=== PATIENT | female | born 1985 | race Two or more races ===

== ENCOUNTER 2019-07-28 00:38 | Inpatient (IN) ==
[2019-07-28] MEDS ORDERED: OXYTOCIN 30 UNITS/500 ML BAG IV PRN ×3 (01:33→21:06)
[2019-07-28 02:04] LABS: Hematocrit (blood only) 37.8 % (37-47); Hemoglobin 12.9 g/dL (12.0-16.0); Mean Corpuscular Hemoglobin 31.6 pg (25-34); Mean Corpuscular Volume 92.6 fL (80-100); Mean Platelet Volume 11.2 fL (7.4-10.4); Platelet Count 189 K/uL (130-400); RDW Coefficient of Variation 13.3 % (11.5-14.5); Red Blood Count 4.08 M/uL (4.2-5.4); White Blood Count 11.31 K/uL (4.8-10.8)
[2019-07-28 02:06] LABS: Mean Corpuscular Hgb Conc 34.1 g/dL (32-36)
[2019-07-28] MEDS: BUTORPHANOL TARTRATE 1 MG/ML VIAL IV PRN ×2 (04:14→06:46)
[2019-07-28] MEDS: LACTATED RINGER'S 1,000 ML IV PRN ×4 (04:21→14:08)
[2019-07-28] MEDS ORDERED: ePHEDrine sulfate 50 MG/ML AMP ONE (08:16)
[2019-07-28] MEDS ORDERED: BUPIVACAINE 0.25% 30 ML VIAL ONE (08:16)
[2019-07-28] MEDS ORDERED: fentaNYL citrate 100 MCG/2 ML VIAL ONE (08:17)
[2019-07-28] MEDS ORDERED: fentaNYL 2MCG/ML ROPIV 1.25MG/ML 100 ML BAG EPI ONE (08:17)
[2019-07-28] MEDS ORDERED: DiphenhydrAMINE HCL 50 MG/ML VIAL IV PRN (09:09)
[2019-07-28] MEDS ORDERED: NALOXONE HCL 0.4 MG/1 ML VIAL/CARP IV PRN (09:09)
[2019-07-28] MEDS ORDERED: NALBUPHINE HCL INJ 10 MG/ML AMP IV PRN (09:09)
[2019-07-28] MEDS ORDERED: ePHEDrine sulfate 50 MG/ML AMP IV PRN (09:09)
[2019-07-28] MEDS ORDERED: NALOXONE HCL 1 MG in SODIUM CHLORIDE 0.9% 1000ML 1,000 ML IV PRN (09:09)
[2019-07-28] MEDS ORDERED: ONDANSETRON INJ 2 MG/ML 2 ML VIAL IV PRN (09:09)
--- NOTE | 2019-07-28 09:14 | Anesthesiology Consultation ---
Date of Service July 28, 2019 Assessment & Plan Chart Review Chart Review: Patient NOT seen in Pre Admission Testing and Acceptable Risk for Labor Epidural Consults Requested none ASA ASA2 Proposed Anesthesia Anesthesia Type: Labor Epidural and CSE Risk / Benefits Reviewed With: PT / POA / Parent / Guardian, Accepts Plan and Informed Consent Obtained History Height/Weight Height: 4 ft 11 in Weight: 57.153 kg Allergies Allergy/AdvReac Type Severity Reaction Status Date / Time No Known Allergies Allergy Verified 07/28/19 01:04 Medications Home Medications Medication Instructions Recorded Confirmed Last Taken cholecalciferol (vitamin D3) 25 mcg PO DAILY 07/28/19 07/28/19 07/27/19 [Vitamin D3] vit-iron fum-folic ac 1 tab PO DAILY 07/28/19 07/28/19 07/27/19 [ Vitamin] vitamin E 400 unit PO DAILY 07/28/19 07/28/19 07/27/19 Active Medications Generic Name Dose Route Start Last Admin Trade Name Freq PRN Reason Stop Dose Admin Butorphanol Tartrate 1 mg 07/28/19 04:01 07/28/19 06:46 Stadol IV 08/27/19 04:00 1 mg Q2HWA PRN Administration Pain Lactated Ringer's 1,000 mls @ 125 mls/hr 07/28/19 01:33 07/28/19 09:06 Lr IV 07/30/19 01:32 999 mls/hr .Q8H PRN Administration L&D Protocol Protocol NPO Date Last Intake of Fluids: 07/28/19 Time Last Intake of Fluids: 08:30 Date Last Intake of Solids: 07/27/19 Time Last Intake of Solids: 22:00 Past Medical History Medical History No known health problems Exercise / Class Metabolic Activity II 4-5 Yardwork/Stairs/Walk up hill Past Anesthesia History No Hx of Anesthesia Complications and No Family Hx of Anesthesia Complications History of PONV No Hx of PONV and No Hx of Motion Sickness Social History Smoking Status: Never smoker Hx Alcohol Use: No Hx Substance Use: No substance use type: does not use Review of Systems no chest pain or sob Physical Exam Vital Signs Last Vital Signs Temp 36.4 C L 07/28/19 08:00 Pulse 91 H 07/28/19 09:11 Resp 18 05/11/20 08:00 BP 101/55 L 07/28/19 08:01 Pulse Ox 91 07/28/19 09:11 ENMT Mouth: no TMJ abnormality Thyromental Distance: > or= 3.5 Finger Breadths Mallampati Class: II Neck normal visual inspection Respiratory normal respiratory effort Auscultation: lungs clear to auscultation bilaterally Cardiovascular Rate/Rhythm: regular rate and regular rhythm Musculoskeletal Spine: normal cervical ROM Neurologic moves all extremities Psychiatric Orientation: alert and oriented x 3 Testing Laboratory Results 07/28/19 01:45
[2019-07-28] MEDS: fentaNYL 2MCG/ML ROPIV 1.25MG/ML 100 ML BAG EPI PRN ×2 (09:35→16:37)
--- NOTE | 2019-07-28 15:04 | Obstetrical Progress Note ---
Date of Service July 28, 2019 Assessment & Plan Admission and Anticipated Discharge Date Admission Date: July 28, 2019 Physical Exam Genitourinary: Manual OB Exam: + cervical dilation 4 cm, + cervical effacement 90%, + station -2 and + amniotic fluid clear OB Exam Monitor Tracing: + external FHT monitor used, + external uterine monitor used, + category I and + normal FHT variability Results & Data ([facility] [place]) Vital Signs (Past 12 Hours) Vital Signs Temp Pulse Resp BP Pulse Ox 07/28/19 15:02 81 113/66 100 07/28/19 14:57 90 98 07/28/19 14:52 74 98 07/28/19 14:49 81 116/65 07/28/19 14:47 89 97 07/28/19 14:43 18 07/28/19 14:42 79 97 07/28/19 14:40 18 07/28/19 14:37 79 98 07/28/19 14:33 82 115/63 07/28/19 14:32 88 100 07/28/19 14:27 79 97 07/28/19 14:23 78 94 07/28/19 14:22 77 98 07/28/19 14:17 86 106/58 L 96 07/28/19 14:13 81 92 07/28/19 14:12 77 99 07/28/19 14:07 97 H 100 07/28/19 14:05 83 92 07/28/19 14:02 83 109/55 L 100 07/28/19 13:57 87 97 07/28/19 13:52 76 99 07/28/19 13:50 85 91 07/28/19 13:49 83 122/57 L 07/28/19 13:47 105 H 98 07/28/19 13:45 84 92 07/28/19 13:42 77 100 07/28/19 13:37 75 99 07/28/19 13:32 86 18 111/70 100 07/28/19 13:27 88 100 07/28/19 13:22 80 100 07/28/19 13:19 106 H 91 07/28/19 13:18 79 116/67 07/28/19 13:17 86 97 07/28/19 13:15 18 07/28/19 13:12 77 100 07/28/19 13:10 18 07/28/19 13:09 82 93 05/11/20 13:07 92 H 99 07/28/19 13:04 83 116/70 07/28/19 13:02 103 H 100 07/28/19 13:00 83 90 07/28/19 12:57 94 H 100 07/28/19 12:53 78 90 07/28/19 12:52 81 99 07/28/19 12:47 83 112/66 99 07/28/19 12:45 99 H 90 07/28/19 12:42 85 100 07/28/19 12:40 18 07/28/19 12:37 92 H 100 07/28/19 12:34 82 116/69 07/28/19 12:32 86 100 07/28/19 12:27 70 100 07/28/19 12:22 87 100 07/28/19 12:18 70 119/70 07/28/19 12:17 72 97 07/28/19 12:15 96 H 92 07/28/19 12:12 81 99 07/28/19 12:10 18 07/28/19 12:07 78 100 07/28/19 12:02 72 105/59 L 100 07/28/19 11:57 72 100 07/28/19 11:52 90 99 07/28/19 11:47 92 H 100/62 98 07/28/19 11:42 75 100 07/28/19 11:40 18 07/28/19 11:37 85 100 07/28/19 11:32 68 102/53 L 100 07/28/19 11:31 76 91 07/28/19 11:27 72 100 07/28/19 11:22 68 98 07/28/19 11:18 74 94/54 L 07/28/19 11:17 83 99 07/28/19 11:12 74 100 07/28/19 11:11 72 86 L 07/28/19 11:10 18 07/28/19 11:07 79 99 07/28/19 11:05 97 H 90 07/28/19 11:02 69 97/54 L 100 07/28/19 10:57 80 97 07/28/19 10:52 79 97 07/28/19 10:47 73 97/55 L 100 07/28/19 10:42 82 99 07/28/19 10:37 73 100 07/28/19 10:35 72 92 07/28/19 10:32 77 96/53 L 100 07/28/19 10:27 76 100 07/28/19 10:22 77 100 07/28/19 10:17 73 100/54 L 100 07/28/19 10:12 86 100 07/28/19 10:07 82 98 07/28/19 10:03 82 97/53 L 07/28/19 10:02 81 100 07/28/19 09:57 101 H 100 07/28/19 09:54 69 110/59 L 07/28/19 09:52 83 99 07/28/19 09:47 109 H 93 07/28/19 09:45 85 112/53 L 07/28/19 09:42 70 105/56 L 100 07/28/19 09:39 67 109/53 L 07/28/19 09:37 60 100 07/28/19 09:36 86 90/53 L 07/28/19 09:33 75 90/51 L 07/28/19 09:32 77 98 07/28/19 09:30 82 91/53 L 07/28/19 09:27 86 122/69 95 07/28/19 09:25 88 89 L 07/28/19 09:22 97 H 99 07/28/19 09:19 86 92 07/28/19 09:17 101 H 97 07/28/19 09:11 91 H 91 07/28/19 09:10 84 96 07/28/19 09:05 84 85 L 07/28/19 09:04 86 91 07/28/19 08:57 100 H 92 07/28/19 08:02 73 93 07/28/19 08:01 71 101/55 L 96 07/28/19 08:00 36.4 C L 18 07/28/19 07:56 75 95 07/28/19 07:51 85 96 07/28/19 07:48 78 93 07/28/19 07:46 82 98 07/28/19 07:41 74 94 07/28/19 07:36 86 95 07/28/19 07:31 92 H 96 07/28/19 07:26 86 88 L 07/28/19 07:24 84 94 07/28/19 07:21 98 H 95 07/28/19 07:18 76 93 07/28/19 07:16 86 96 07/28/19 07:12 80 93 07/28/19 07:11 90 97 07/28/19 07:07 79 94 07/28/19 07:06 80 94 07/28/19 07:02 79 94 07/28/19 07:01 72 95 07/28/19 06:56 81 92 07/28/19 06:53 84 93 07/28/19 06:51 80 95 07/28/19 06:47 90 94 07/28/19 06:46 86 95 07/28/19 06:41 101 H 97 07/28/19 06:38 100 H 94 07/28/19 06:36 93 H 98 07/28/19 06:33 76 94 07/28/19 06:31 89 96 07/28/19 06:26 82 96 07/28/19 06:25 81 94 07/28/19 06:21 89 95 07/28/19 06:16 83 96 07/28/19 06:11 69 96 07/28/19 06:06 86 96 07/28/19 06:01 64 94 07/28/19 05:56 98 H 95 07/28/19 05:54 68 94 07/28/19 05:51 92 H 91 07/28/19 05:46 98 H 95 07/28/19 05:36 65 96 07/28/19 05:31 98 H 95 07/28/19 05:26 74 96 07/28/19 05:21 77 96 07/28/19 05:16 69 96 07/28/19 05:11 93 H 96 07/28/19 05:06 74 96 07/28/19 05:01 70 97 07/28/19 04:56 73 96 07/28/19 04:51 92 H 97 07/28/19 04:46 90 98 07/28/19 04:41 76 97 07/28/19 04:36 67 96 07/28/19 04:32 71 94 07/28/19 04:31 66 95 07/28/19 04:27 74 94 07/28/19 04:26 64 95 07/28/19 04:21 80 95 07/28/19 04:18 77 93 07/28/19 04:16 79 98 07/28/19 03:54 36.5 C 18 07/28/19 03:53 77 111/57 L
--- NOTE | 2019-07-28 17:39 | Obstetrical Progress Note ---
Date of Service July 28, 2019 Assessment & Plan Admission and Anticipated Discharge Date Admission Date: July 28, 2019 Physical Exam Genitourinary: Manual OB Exam: + cervical dilation 7 cm, + cervical effacement 100%, + station 0 and + amniotic fluid clear OB Exam Monitor Tracing: + external FHT monitor used, + external uterine monitor used, + category I and + normal FHT variability Results & Data ([facility]) Vital Signs (Past 12 Hours) Vital Signs Temp Pulse Resp BP Pulse Ox 07/28/19 17:36 85 91 07/28/19 17:34 99 H 103/55 L 07/28/19 17:32 84 95 07/28/19 17:30 93 H 85 L 07/28/19 17:27 74 100 07/28/19 17:22 80 100 07/28/19 17:18 85 99/57 L 07/28/19 17:17 85 100 07/28/19 17:12 79 99 07/28/19 17:07 83 95 07/28/19 17:03 82 104/65 07/28/19 17:02 79 99 07/28/19 16:57 78 99 07/28/19 16:52 76 99 07/28/19 16:49 76 110/65 07/28/19 16:47 79 99 07/28/19 16:42 84 98 07/28/19 16:37 82 99 07/28/19 16:33 75 112/67 07/28/19 16:32 75 100 07/28/19 16:30 87 91 07/28/19 16:28 18 07/28/19 16:27 69 99 07/28/19 16:24 86 90 07/28/19 16:22 93 H 97 07/28/19 16:18 74 18 95/55 L 07/28/19 16:17 94 H 100 07/28/19 16:12 75 100 07/28/19 16:07 74 100 07/28/19 16:04 93 H 89 L 07/28/19 16:02 75 102/52 L 100 07/28/19 15:57 71 100 07/28/19 15:52 81 98 07/28/19 15:48 83 98/55 L 07/28/19 15:47 69 99 07/28/19 15:42 78 96 07/28/19 15:37 74 98 07/28/19 15:32 73 106/55 L 100 07/28/19 15:30 18 07/28/19 15:27 77 99 07/28/19 15:22 76 100 07/28/19 15:17 77 105/57 L 100 07/28/19 15:12 78 100 07/28/19 15:07 79 97 07/28/19 15:06 36.5 C 18 07/28/19 15:02 81 113/66 100 07/28/19 14:57 90 98 07/28/19 14:52 74 98 07/28/19 14:49 81 116/65 07/28/19 14:47 89 97 07/28/19 14:43 18 07/28/19 14:42 79 97 07/28/19 14:40 18 07/28/19 14:37 79 98 07/28/19 14:33 82 115/63 07/28/19 14:32 88 100 07/28/19 14:27 79 97 07/28/19 14:23 78 94 07/28/19 14:22 77 98 07/28/19 14:17 86 106/58 L 96 07/28/19 14:13 81 92 07/28/19 14:12 77 99 07/28/19 14:07 97 H 100 07/28/19 14:05 83 92 07/28/19 14:02 83 109/55 L 100 07/28/19 13:57 87 97 07/28/19 13:52 76 99 07/28/19 13:50 85 91 07/28/19 13:49 83 122/57 L 07/28/19 13:47 105 H 98 07/28/19 13:45 84 92 07/28/19 13:42 77 100 07/28/19 13:37 75 99 07/28/19 13:32 86 18 111/70 100 07/28/19 13:27 88 100 07/28/19 13:22 80 100 07/28/19 13:19 106 H 91 07/28/19 13:18 79 116/67 07/28/19 13:17 86 97 07/28/19 13:15 18 07/28/19 13:12 77 100 07/28/19 13:10 18 07/28/19 13:09 82 93 07/28/19 13:07 92 H 99 05/11/20 13:04 83 116/70 07/28/19 13:02 103 H 100 07/28/19 13:00 83 90 07/28/19 12:57 94 H 100 07/28/19 12:53 78 90 07/28/19 12:52 81 99 07/28/19 12:47 83 112/66 99 07/28/19 12:45 99 H 90 07/28/19 12:42 85 100 07/28/19 12:40 18 07/28/19 12:37 92 H 100 07/28/19 12:34 82 116/69 07/28/19 12:32 86 100 07/28/19 12:27 70 100 07/28/19 12:22 87 100 07/28/19 12:18 70 119/70 07/28/19 12:17 72 97 07/28/19 12:15 96 H 92 07/28/19 12:12 81 99 07/28/19 12:10 18 07/28/19 12:07 78 100 07/28/19 12:02 72 105/59 L 100 07/28/19 11:57 72 100 07/28/19 11:52 90 99 07/28/19 11:47 92 H 100/62 98 07/28/19 11:42 75 100 07/28/19 11:40 18 07/28/19 11:37 85 100 07/28/19 11:32 68 102/53 L 100 07/28/19 11:31 76 91 07/28/19 11:27 72 100 07/28/19 11:22 68 98 07/28/19 11:18 74 94/54 L 07/28/19 11:17 83 99 07/28/19 11:12 74 100 07/28/19 11:11 72 86 L 07/28/19 11:10 18 07/28/19 11:07 79 99 07/28/19 11:05 97 H 90 07/28/19 11:02 69 97/54 L 100 07/28/19 10:57 80 97 07/28/19 10:52 79 97 07/28/19 10:47 73 97/55 L 100 07/28/19 10:42 82 99 07/28/19 10:37 73 100 07/28/19 10:35 72 92 07/28/19 10:32 77 96/53 L 100 07/28/19 10:27 76 100 07/28/19 10:22 77 100 07/28/19 10:17 73 100/54 L 100 07/28/19 10:12 86 100 07/28/19 10:07 82 98 07/28/19 10:03 82 97/53 L 07/28/19 10:02 81 100 07/28/19 09:57 101 H 100 07/28/19 09:54 69 110/59 L 07/28/19 09:52 83 99 07/28/19 09:47 109 H 93 07/28/19 09:45 85 112/53 L 07/28/19 09:42 70 105/56 L 100 07/28/19 09:39 67 109/53 L 07/28/19 09:37 60 100 07/28/19 09:36 86 90/53 L 07/28/19 09:33 75 90/51 L 07/28/19 09:32 77 98 07/28/19 09:30 82 91/53 L 07/28/19 09:27 86 122/69 95 07/28/19 09:25 88 89 L 07/28/19 09:22 97 H 99 07/28/19 09:19 86 92 07/28/19 09:17 101 H 97 07/28/19 09:11 91 H 91 07/28/19 09:10 84 96 07/28/19 09:05 84 85 L 07/28/19 09:04 86 91 07/28/19 08:57 100 H 92 07/28/19 08:02 73 93 07/28/19 08:01 71 101/55 L 96 07/28/19 08:00 36.4 C L 18 07/28/19 07:56 75 95 07/28/19 07:51 85 96 07/28/19 07:48 78 93 07/28/19 07:46 82 98 07/28/19 07:41 74 94 07/28/19 07:36 86 95 07/28/19 07:31 92 H 96 07/28/19 07:26 86 88 L 07/28/19 07:24 84 94 07/28/19 07:21 98 H 95 07/28/19 07:18 76 93 07/28/19 07:16 86 96 05/11/20 07:12 80 93 07/28/19 07:11 90 97 07/28/19 07:07 79 94 07/28/19 07:06 80 94 07/28/19 07:02 79 94 07/28/19 07:01 72 95 07/28/19 06:56 81 92 07/28/19 06:53 84 93 07/28/19 06:51 80 95 07/28/19 06:47 90 94 07/28/19 06:46 86 95 07/28/19 06:41 101 H 97 07/28/19 06:38 100 H 94 07/28/19 06:36 93 H 98 07/28/19 06:33 76 94 07/28/19 06:31 89 96 07/28/19 06:26 82 96 07/28/19 06:25 81 94 07/28/19 06:21 89 95 07/28/19 06:16 83 96 07/28/19 06:11 69 96 07/28/19 06:06 86 96 07/28/19 06:01 64 94 07/28/19 05:56 98 H 95 07/28/19 05:54 68 94 07/28/19 05:51 92 H 91 07/28/19 05:46 98 H 95
--- NOTE | 2019-07-28 20:52 | Delivery Summary ---
Vaginal Delivery Summary Date of Service July 28, 2019 Vaginal Delivery Summary Delivery Note live male BRANDON over intact perineum with delayed cord clamping and Apgars 8/10 weight pending. Cord blood obtained followed by spontaneous delivery of intact perineum. First degree tear repaired with 3/0 Vicryl suture. EBL 200 ml. Final sponge, needle and instrument count are correct. Mom and baby stable.
[2019-07-28] MEDS ORDERED: DIPHTHERIA/TETANUS/PERTUSSIS 0.5 ML SYR/VIAL IM ONE (21:06)
[2019-07-28] MEDS ORDERED: SUPERCREAM 0.870% 15 GM JAR EXT PRN (21:06)
[2019-07-28] MEDS ORDERED: ACETAMINOPHEN 325 MG TAB PO PRN (21:06)
[2019-07-28] MEDS ORDERED: bisacodyL 10 MG SUPP PR PRN (21:06)
[2019-07-28] MEDS ORDERED: HYDROCORTISONE ACETATE 25 MG SUPP PR PRN (21:06)
--- NOTE | 2019-07-28 21:06 | Anesthesia Procedure Note ---
Date of Service July 28, 2019 Anesthesia Post Epidural Note Vital Signs Vital Signs: Temp Pulse Resp BP Pulse Ox 36.9 C 86 18 99/61 L 100 07/28/19 18:41 07/28/19 20:58 07/28/19 20:44 07/28/19 20:58 07/28/19 20:43 Pain Intensity Abdomen: Pain Intensity: 2 Notes Mental Status: alert / awake / arousable and participated in evaluation Nausea / Vomiting: adequately controlled Pain: adequately controlled Airway Patency, RR, SpO2: stable & adequate BP & HR: stable & adequate Hydration State: stable & adequate Neuraxial Anesthesia: was administered and sensory block is resolving Anesthetic Complications: no major complications apparent and Pt Satisfied with anesthetic care Epidural: Removed without complications and With tip intact
[2019-07-28] MEDS: IBUPROFEN 600 MG TAB PO PRN (21:31)
[2019-07-28] MEDS: DOCUSATE SODIUM 100 MG CAP PO SCH (21:31)
[2019-07-29] MEDS: BENZOCAINE 20% AER SPR 82.5 GM CAN EXT PRN
[2019-07-29] MEDS: IBUPROFEN 600 MG TAB PO PRN ×3 (05:52→20:04)
[2019-07-29 06:01] LABS: Hematocrit (blood only) 29.1 % (37-47); Hemoglobin 9.7 g/dL (12.0-16.0); Mean Corpuscular Hemoglobin 30.9 pg (25-34); Mean Corpuscular Hgb Conc 33.3 g/dL (32-36); Mean Corpuscular Volume 92.7 fL (80-100); Mean Platelet Volume 11.2 fL (7.4-10.4); Platelet Count 149 K/uL (130-400); RDW Coefficient of Variation 13.7 % (11.5-14.5); RDW Standard Deviation 45.5 fL (36.4-46.3); Red Blood Count 3.14 M/uL (4.2-5.4); White Blood Count 14.18 K/uL (4.8-10.8)
[2019-07-29] MEDS ORDERED: OXYCODONE/ACETAMINOPHEN 5mg/325mg TAB PO PRN (07:46)
[2019-07-29] MEDS ORDERED: METHYLERGONOVINE MALEATE 0.2 MG TAB PO STA (07:46)
--- NOTE | 2019-07-29 07:50 | Obstetrical Progress Note ---
Date of Service July 29, 2019 Assessment & Plan Admission and Anticipated Discharge Date Admission Date: July 28, 2019 Subjective Patient is seen and examined. She feels well, no complaints. Ambulating without dizziness Voiding without difficulty Tolerating regular diet with out N&V Bleeding is minimal No fever/ chills/ CP/ SOB/ N&V/ Leg pain Breast feeding without problems Vital Signs Temp Pulse Pulse Resp BP BP Pulse Ox 07/29/19 07:15 36.6 C 72 16 97/60 L 98 07/29/19 02:35 36.6 C 88 16 96/59 L 99 07/28/19 23:15 36.8 C 86 18 92/51 L 07/28/19 22:57 86 92/51 L 07/28/19 22:44 36.8 C 18 07/28/19 22:28 96 H 80/58 L 07/28/19 22:13 95 H 18 92/55 L 07/28/19 21:58 86 90/50 L 07/28/19 21:43 80 18 106/57 L 07/28/19 21:28 80 20 111/55 L 07/28/19 21:13 73 20 93/54 L 07/28/19 20:58 86 18 99/61 L 07/28/19 20:44 18 07/28/19 20:43 92 H 106/59 L 100 07/28/19 20:42 98 H 90 07/28/19 20:38 102 H 100 07/28/19 20:34 115 H 92 07/28/19 20:33 114 H 97 07/28/19 20:28 121 H 97 07/28/19 20:23 123 H 100 07/28/19 20:18 108 H 20 107/55 L 100 07/28/19 20:17 96 H 87 L 07/28/19 20:13 114 H 76 L 07/28/19 20:08 105 H 78 L 07/28/19 20:03 98 H 100 07/28/19 20:02 81 20 109/57 L 07/28/19 20:00 90 87 L 07/28/19 19:58 92 H 100 07/28/19 19:53 98 H 100 07/28/19 19:48 98 H 99 07/28/19 19:47 86 90 07/28/19 19:43 103 H 100 07/28/19 19:38 100 H 81 L 07/28/19 19:33 92 H 100 07/28/19 19:32 93 H 103/56 L 07/28/19 19:31 20 07/28/19 19:29 107 H 92 07/28/19 19:28 103 H 99 07/28/19 19:23 123 H 99 07/28/19 19:18 94 H 100 07/28/19 19:13 125 H 100 07/28/19 19:07 95 H 98 07/28/19 19:03 121 H 215/95 H 07/28/19 19:02 88 84 L 07/28/19 19:00 77 91 07/28/19 18:57 83 93 07/28/19 18:55 75 18 90 07/28/19 18:52 80 97 07/28/19 18:47 73 104/56 L 97 07/28/19 18:43 76 93 07/28/19 18:42 74 97 07/28/19 18:41 36.9 C 18 07/28/19 18:37 78 97 07/28/19 18:36 85 92 07/28/19 18:34 75 113/65 07/28/19 18:32 78 99 07/28/19 18:31 99 H 91 07/28/19 18:30 18 07/28/19 18:27 73 100 07/28/19 18:25 73 92 07/28/19 18:22 83 98 07/28/19 18:19 77 105/57 L 07/28/19 18:17 72 82 L 07/28/19 18:14 74 92 07/28/19 18:12 93 H 99 07/28/19 18:07 78 92 07/28/19 18:04 79 130/60 07/28/19 18:02 74 96 07/28/19 17:57 70 96 07/28/19 17:56 72 94 07/28/19 17:52 88 100 07/28/19 17:50 83 86 L 07/28/19 17:49 87 95/58 L 07/28/19 17:47 81 98 07/28/19 17:42 86 90 07/28/19 17:37 81 87 L 07/28/19 17:36 85 18 91 07/28/19 17:34 99 H 103/55 L 07/28/19 17:32 84 95 07/28/19 17:30 93 H 85 L 07/28/19 17:27 74 100 07/28/19 17:22 80 100 07/28/19 17:18 85 99/57 L 07/28/19 17:17 85 100 07/28/19 17:12 79 99 07/28/19 17:07 83 95 07/28/19 17:03 82 104/65 07/28/19 17:02 79 99 07/28/19 16:57 78 99 07/28/19 16:52 76 99 07/28/19 16:49 76 110/65 07/28/19 16:47 79 99 07/28/19 16:42 84 98 07/28/19 16:37 82 99 07/28/19 16:33 75 112/67 07/28/19 16:32 75 100 07/28/19 16:30 87 91 07/28/19 16:28 18 07/28/19 16:27 69 99 07/28/19 16:24 86 90 07/28/19 16:22 93 H 97 07/28/19 16:18 74 18 95/55 L 07/28/19 16:17 94 H 100 07/28/19 16:12 75 100 07/28/19 16:07 74 100 07/28/19 16:04 93 H 89 L 07/28/19 16:02 75 102/52 L 100 07/28/19 15:57 71 100 07/28/19 15:52 81 98 07/28/19 15:48 83 98/55 L 07/28/19 15:47 69 99 07/28/19 15:42 78 96 07/28/19 15:37 74 98 07/28/19 15:32 73 106/55 L 100 07/28/19 15:30 18 07/28/19 15:27 77 99 07/28/19 15:22 76 100 07/28/19 15:17 77 105/57 L 100 07/28/19 15:12 78 100 07/28/19 15:07 79 97 07/28/19 15:06 36.5 C 18 07/28/19 15:02 81 113/66 100 07/28/19 14:57 90 98 07/28/19 14:52 74 98 07/28/19 14:49 81 116/65 07/28/19 14:47 89 97 07/28/19 14:43 18 07/28/19 14:42 79 97 07/28/19 14:40 18 07/28/19 14:37 79 98 07/28/19 14:33 82 115/63 07/28/19 14:32 88 100 07/28/19 14:27 79 97 07/28/19 14:23 78 94 07/28/19 14:22 77 98 07/28/19 14:17 86 106/58 L 96 07/28/19 14:13 81 92 07/28/19 14:12 77 99 07/28/19 14:07 97 H 100 07/28/19 14:05 83 92 07/28/19 14:02 83 109/55 L 100 07/28/19 13:57 87 97 07/28/19 13:52 76 99 07/28/19 13:50 85 91 07/28/19 13:49 83 122/57 L 07/28/19 13:47 105 H 98 07/28/19 13:45 84 92 07/28/19 13:42 77 100 07/28/19 13:37 75 99 07/28/19 13:32 86 18 111/70 100 07/28/19 13:27 88 100 07/28/19 13:22 80 100 07/28/19 13:19 106 H 91 07/28/19 13:18 79 116/67 07/28/19 13:17 86 97 07/28/19 13:15 18 07/28/19 13:12 77 100 07/28/19 13:10 18 07/28/19 13:09 82 93 07/28/19 13:07 92 H 99 07/28/19 13:04 83 116/70 07/28/19 13:02 103 H 100 07/28/19 13:00 83 90 07/28/19 12:57 94 H 100 07/28/19 12:53 78 90 07/28/19 12:52 81 99 07/28/19 12:47 83 112/66 99 07/28/19 12:45 99 H 90 07/28/19 12:42 85 100 07/28/19 12:40 18 07/28/19 12:37 92 H 100 07/28/19 12:34 82 116/69 07/28/19 12:32 86 100 07/28/19 12:27 70 100 07/28/19 12:22 87 100 07/28/19 12:18 70 119/70 07/28/19 12:17 72 97 07/28/19 12:15 96 H 92 07/28/19 12:12 81 99 07/28/19 12:10 18 07/28/19 12:07 78 100 07/28/19 12:02 72 105/59 L 100 07/28/19 11:57 72 100 07/28/19 11:52 90 99 07/28/19 11:47 92 H 100/62 98 07/28/19 11:42 75 100 07/28/19 11:40 18 07/28/19 11:37 85 100 07/28/19 11:32 68 102/53 L 100 07/28/19 11:31 76 91 07/28/19 11:27 72 100 07/28/19 11:22 68 98 07/28/19 11:18 74 94/54 L 07/28/19 11:17 83 99 07/28/19 11:12 74 100 07/28/19 11:11 72 86 L 07/28/19 11:10 18 07/28/19 11:07 79 99 07/28/19 11:05 97 H 90 07/28/19 11:02 69 97/54 L 100 07/28/19 10:57 80 97 07/28/19 10:52 79 97 07/28/19 10:47 73 97/55 L 100 07/28/19 10:42 82 99 07/28/19 10:37 73 100 07/28/19 10:35 72 92 07/28/19 10:32 77 96/53 L 100 07/28/19 10:27 76 100 07/28/19 10:22 77 100 07/28/19 10:17 73 100/54 L 100 07/28/19 10:12 86 100 07/28/19 10:07 82 98 07/28/19 10:03 82 97/53 L 07/28/19 10:02 81 100 07/28/19 09:57 101 H 100 07/28/19 09:54 69 110/59 L 07/28/19 09:52 83 99 07/28/19 09:47 109 H 93 07/28/19 09:45 85 112/53 L 07/28/19 09:42 70 105/56 L 100 07/28/19 09:39 67 109/53 L 07/28/19 09:37 60 100 07/28/19 09:36 86 90/53 L 07/28/19 09:33 75 90/51 L 07/28/19 09:32 77 98 07/28/19 09:30 82 91/53 L 07/28/19 09:27 86 122/69 95 07/28/19 09:25 88 89 L 07/28/19 09:22 97 H 99 07/28/19 09:19 86 92 07/28/19 09:17 101 H 97 07/28/19 09:11 91 H 91 07/28/19 09:10 84 96 07/28/19 09:05 84 85 L 07/28/19 09:04 86 91 07/28/19 08:57 100 H 92 07/28/19 08:02 73 93 07/28/19 08:01 71 101/55 L 96 07/28/19 08:00 36.4 C L 18 07/28/19 07:56 75 95 07/28/19 07:51 85 96 Intake and Output 07/28/19 07/29/19 07/29/19 22:59 06:59 14:59 Intake Total 1348.35 / 3198.917 Output Total 150 / 900 150 / 900 Balance 1198.35 / 2298.917 -150 / 2298.917 Intake: IV 1348.35 / 3198.917 Lr 1,000 ml @ 125 mls/hr IV . 1000.00 / 2848.934 Q8H PRN Rx#:[id number] PITOCIN 30 units In 500 ml @ 59 348.35 / 349.983 .94 UNITS/HR 999 mls/hr IV . Q31M PRN Rx#:[id number] Output: Urine 150 / 300 150 / 300 Other: # Unmeasured Voids 1 Lab Results 07/28/19 07/29/19 Range/Units 01:45 05:25 WBC 11.31 H 14.18 H (4.8-10.8) K/uL RBC 4.08 L 3.14 L (4.2-5.4) M/uL Hgb 12.9 9.7 L D (12.0-16.0) g/dL Hct 37.8 29.1 L (37-47) % MCV 92.6 92.7 (80-100) fL MCH 31.6 30.9 (25-34) pg MCHC 34.1 33.3 (32-36) g/dL RDW Std Deviation 45.0 45.5 (36.4-46.3) fL RDW Coeff of Nevin 13.3 13.7 (11.5-14.5) % Plt Count 189 149 (130-400) K/uL MPV 11.2 H 11.2 H (7.4-10.4) fL PE: General: Alert, orientedx3, NAD Abd: soft, NT, fundus firm, 2+ Umbilicus Perineum intact, Lochia rubra minimal Ext; NT, no edema AP: 34 yo s/p , ppd# 1 VSS Afebrile doing well Will start Methergine PO Ferrous sulfate bid Continue routine care All questions were answered Results & Data ([facility]) Vital Signs (Past 12 Hours) Vital Signs Temp Pulse Pulse Resp BP BP Pulse Ox 07/29/19 07:15 36.6 C 72 16 97/60 L 98 07/29/19 02:35 36.6 C 88 16 96/59 L 99 07/28/19 23:15 36.8 C 86 18 92/51 L 07/28/19 22:57 86 92/51 L 07/28/19 22:44 36.8 C 18 07/28/19 22:28 96 H 80/58 L 07/28/19 22:13 95 H 18 92/55 L 07/28/19 21:58 86 90/50 L 07/28/19 21:43 80 18 106/57 L 07/28/19 21:28 80 20 111/55 L 07/28/19 21:13 73 20 93/54 L 07/28/19 20:58 86 18 99/61 L 07/28/19 20:44 18 07/28/19 20:43 92 H 106/59 L 100 07/28/19 20:42 98 H 90 07/28/19 20:38 102 H 100 07/28/19 20:34 115 H 92 07/28/19 20:33 114 H 97 07/28/19 20:28 121 H 97 07/28/19 20:23 123 H 100 07/28/19 20:18 108 H 20 107/55 L 100 07/28/19 20:17 96 H 87 L 07/28/19 20:13 114 H 76 L 07/28/19 20:08 105 H 78 L 07/28/19 20:03 98 H 100 07/28/19 20:02 81 20 109/57 L 07/28/19 20:00 90 87 L 07/28/19 19:58 92 H 100 07/28/19 19:53 98 H 100
[2019-07-29] MEDS ORDERED: FERROUS SULFATE 325 MG TAB PO SCH (08:00)
[2019-07-29] MEDS: DOCUSATE SODIUM 100 MG CAP PO SCH ×2 (08:13→20:04)
[2019-07-29] MEDS: FERROUS SULFATE 325 MG TAB PO SCH ×2 (08:13→16:27)
[2019-07-29] MEDS: PRENATAL VITAMIN 1 TAB PO SCH (08:13)
[2019-07-29] MEDS: TOCOPHERYL, DL-ALPHA 400 UNITS CAP PO SCH (08:14)
[2019-07-29] MEDS ORDERED: NON-FORMULARY MEDICATION (Prenatal Vit-Iron Fum-Folic Ac [Prenatal Vitamin] 1 TAB) PO SCH (09:00)
[2019-07-29] MEDS ORDERED: CHOLECALCIFEROL 25 MCG PO SCH (09:00)
[2019-07-29] MEDS: METHYLERGONOVINE MALEATE 0.2 MG TAB PO SCH ×3 (11:42→20:04)
[2019-07-29] MEDS ORDERED: bisacodyL 5 MG TABEC PO SCH (20:00)
[2019-07-30] MEDS: IBUPROFEN 600 MG TAB PO PRN ×3 (00:01→08:54)
[2019-07-30] MEDS: BENZOCAINE 20% AER SPR 82.5 GM CAN EXT PRN (00:01)
[2019-07-30] MEDS: METHYLERGONOVINE MALEATE 0.2 MG TAB PO SCH ×2 (00:01→04:05)
[2019-07-30 06:20] LABS: Basophils # (auto) 0.01 K/uL (0-0.2); Basophils % (auto) 0.1 %; Eosinophils # (auto) 0.18 K/uL (0-0.5); Eosinophils % (auto) 1.4 %; Hematocrit (blood only) 34.6 % (37-47); Hemoglobin 11.4 g/dL (12.0-16.0); Immature Granulocytes # (auto) 0.04 K/uL (0.00-0.02); Immature Granulocytes % (auto) 0.3 %; Lymphocytes # (auto) 3.45 K/uL (1.2-3.4); Lymphocytes % (auto) 26.3 %; Mean Corpuscular Hemoglobin 30.9 pg (25-34); Mean Corpuscular Hgb Conc 32.9 g/dL (32-36); Mean Corpuscular Volume 93.8 fL (80-100); Monocytes # (auto) 1.02 K/uL (0.11-0.59); Monocytes % (auto) 7.8 %; Neutrophils # (auto) 8.44 K/uL (1.4-6.5); Neutrophils % (auto) 64.1 %; Platelet Count 161 K/uL (130-400); RDW Coefficient of Variation 13.8 % (11.5-14.5); RDW Standard Deviation 47.2 fL (36.4-46.3); Red Blood Count 3.69 M/uL (4.2-5.4); White Blood Count 13.14 K/uL (4.8-10.8)
[2019-07-30] MEDS: DOCUSATE SODIUM 100 MG CAP PO SCH (08:54)
[2019-07-30] MEDS: PRENATAL VITAMIN 1 TAB PO SCH (08:54)
[2019-07-30] MEDS: FERROUS SULFATE 325 MG TAB PO SCH (08:54)
[2019-07-30] MEDS: TOCOPHERYL, DL-ALPHA 400 UNITS CAP PO SCH (08:54)
--- NOTE | 2019-07-30 09:53 | Obstetrical Progress Note ---
Date of Service July 30, 2019 Subjective Ambulation: ambulating normally Voiding: no voiding problems Passing Gas:: Yes Diet Tolerance:: regular diet Lochia:: Small Feeding Type:: breast feeding Review of Systems All systems reviewed & are unremarkable except as noted in HPI & below Physical Exam Constitutional WD/WN, vitals as above well developed and well nourished Eyes PERRL, conjunctivae normal, anicteric sclerae Neck trachea midline, no thyromegaly Respiratory normal respiratory effort, lungs clear to auscultation Auscultation: no crackles, no rales and no wheezes Cardiovascular RRR, no murmur, no edema Gastrointestinal (Abdomen) normal bowel sounds, soft, nontender, no hepatosplenomegaly Uterus is below umbilicus Musculoskeletal no cyanosis or clubbing, extremities motor strength 5/5 Skin no rashes, warm and dry Neurologic patellar DTR's 2+ bilat, sensation intact Psychiatric A+Ox3, euthymic affect Genitourinary normal external appearance Results & Data Vital Signs (Past 12 Hours) Vital Signs Temp Pulse Resp BP 07/30/19 08:45 36.4 C L 56 L 18 102/71 07/29/19 23:30 36.8 C 67 18 112/73
== END 2019-07-30 14:05 | disposition home or self-care (01) | DRG 807 ==
LOC: OPB 00:38 → 4S1 00:40 → 4S2 07-29 00:14

== ENCOUNTER 2021-11-11 00:16 | Inpatient (IN) ==
[2021-11-11] MEDS ORDERED: OXYTOCIN 30 UNITS/500 ML BAG IV PRN ×3 (01:05→11:52)
[2021-11-11] MEDS ORDERED: LIDOCAINE 1% LOCAL 20 ML VIAL INFIL PRN (01:05)
--- NOTE | 2021-11-11 01:13 | History & Physical Report ---
Date of Service November 11, 2021 Assessment & Plan (1) Amniotic fluid leaking: Plan: 36-year-old -0-0-1 at 39 weeks and 1 day gestation presenting with spontaneous rupture of membrane, contractions and in early labor, Vital signs stable afebrile, Heart rate reassuring, GBS negative, Plan to admit, monitor, labs, expectant management, All questions were answered. (2) Uterine contractions during : History of Present Illness Primary Care Provider: Lisa Patel MD Patient is a 36-year-old -0-0-1 at 39 weeks and 1 day gestation who has been leaking since 1130 last night. It has been constant Trickle of clear fluids. Vaginal bleeding. She also feels contractions not sure how often but they have been painful. She reports good movements. Her has been uncomplicated except, 1. AMA, Q cindy and MSAFP low risk, 2. Iron deficiency anemia, vegetarian, vitamin D deficiency, 3. Itching of palms and soles, bile acid level normal Allergies Allergy/AdvReac Type Severity Reaction Status Date / Time No Known Allergies Allergy Verified 11/11/21 00:48 Home Medications Medication Instructions Recorded Confirmed Type cholecalciferol (vitamin D3) 25 25 mcg PO DAILY 07/28/19 11/11/21 History mcg (1,000 unit) tablet (Vitamin D3) vitamins-iron fumarate 27 1 tab PO DAILY 07/28/19 11/11/21 History mg iron-folic acid 0.8 mg tablet ( Vitamin) vitamin E 268 mg (400 unit) capsule 400 unit PO DAILY 07/28/19 11/11/21 History ferrous sulfate 325 mg (65 mg 325 mg PO DAILY 11/11/21 11/11/21 History iron) tablet (Iron (ferrous sulfate)) Patient History Medical History Anemia Fibrocystic breast changes of both breasts 2016 Social History Smoking Status: Never smoker Hx Alcohol Use: No Hx Substance Use: No Preferred Language: Khmer 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 Beliefs That Will Affect Care: None marital status: Current Living Situation: Spouse Feels Safe at Home: Yes Assistive Devices: None OB History Full-term on 2019 [employer] History No history of STDs, no history of herpes, chlamydia, gonorrhea Review of Systems as per Subjective / HPI Physical Exam Constitutional: WD/WN, vitals as above + acute distress (With contractions only) and + thin Genitourinary: normal external appearance (Grossly leaking) OB Exam Abdomen: + vertex Manual OB Exam: + cervical dilation 3 cm, + cervical effacement 50% and + station -2 OB Exam Monitor Tracing: + external uterine monitor used and + category I Results & Data ([facility]) Vital Signs (Past 12 Hours) Vital Signs Pulse BP 11/11/21 00:38 67 100/61
[2021-11-11] MEDS: LACTATED RINGER'S 1,000 ML IV PRN ×3 (01:32→08:25)
[2021-11-11 01:34] LABS: Hematocrit (blood only) 37.1 % (34.1-44.9); Hemoglobin 12.4 g/dl (12.0-16.0); Mean Corpuscular Hemoglobin 31.2 pg (25.0-34.0); Mean Corpuscular Hgb Conc 33.4 g/dL (32.0-36.0); Mean Corpuscular Volume 93.2 fL (80.0-100.0); Mean Platelet Volume 10.6 fL (9.4-12.3); Platelet Count 158 K/uL (130-400); RDW Coefficient of Variation 13.3 % (11.5-14.5); RDW Standard Deviation 45.3 fL (36.4-46.3); Red Blood Count 3.98 M/uL (3.93-5.22); White Blood Count 9.41 K/ul (4.8-10.8)
[2021-11-11] MEDS ORDERED: ePHEDrine sulfate 50 MG/ML AMP ONE (02:26)
[2021-11-11] MEDS ORDERED: fentaNYL citrate 100 MCG/2 ML VIAL ONE (02:26)
[2021-11-11] MEDS ORDERED: LIDOCAINE 2%/EPINEPHRINE 1:200,000 20 ML SDV ONE (02:27)
[2021-11-11] MEDS ORDERED: BUPIVACAINE 0.25% 30 ML VIAL ONE (02:27)
[2021-11-11] MEDS ORDERED: fentaNYL 2MCG/ML ROPIVACAINE 1.25MG/ML 100 ML BAG EPI ONE (02:27)
[2021-11-11] MEDS ORDERED: SODIUM CHLORIDE 0.9% INJ 10 ML VIAL ONE (02:27)
[2021-11-11] MEDS ORDERED: NALOXONE HCL 1 MG in SODIUM CHLORIDE 0.9% 1000ML 1,000 ML IV PRN (03:04)
[2021-11-11] MEDS ORDERED: diphenhydrAMINE 50 MG/ML VIAL IV PRN (03:04)
[2021-11-11] MEDS ORDERED: NALBUPHINE HCL INJ 10 MG/ML AMP IV PRN (03:04)
[2021-11-11] MEDS ORDERED: NALOXONE HCL 0.4 MG/1 ML VIAL/CARP IV PRN (03:04)
[2021-11-11] MEDS ORDERED: ONDANSETRON INJ 2 MG/ML 2 ML VIAL IV PRN (03:04)
[2021-11-11] MEDS ORDERED: fentaNYL 2MCG/ML ROPIVACAINE 1.25MG/ML 100 ML BAG EPI PRN (03:04)
--- NOTE | 2021-11-11 03:07 | Anesthesiology Consultation ---
Date of Service November 11, 2021 Assessment & Plan Chart Review Chart Review: Patient NOT seen in Pre Admission Testing and Acceptable Risk for Labor Epidural Consults Requested none ASA ASA2 Proposed Anesthesia Anesthesia Type: Labor Epidural and CSE Risk / Benefits Reviewed With: PT / POA / Parent / Guardian, Accepts Plan and Informed Consent Obtained History Height/Weight Height: 4 ft 11 in Weight: 57.606 kg Allergies Allergy/AdvReac Type Severity Reaction Status Date / Time No Known Allergies Allergy Verified 11/11/21 00:48 Medications Home Medications Medication Instructions Recorded Confirmed Last Taken cholecalciferol (vitamin D3) 25 25 mcg PO DAILY 07/28/19 11/11/21 11/10/21 mcg (1,000 unit) tablet (Vitamin D3) vitamins-iron fumarate 27 1 tab PO DAILY 07/28/19 11/11/21 11/10/21 mg iron-folic acid 0.8 mg tablet ( Vitamin) vitamin E 268 mg (400 unit) capsule 400 unit PO DAILY 07/28/19 11/11/21 11/10/21 ferrous sulfate 325 mg (65 mg 325 mg PO DAILY 11/11/21 11/11/21 11/10/21 iron) tablet (Iron (ferrous sulfate)) Active Medications Generic Name Dose Route Start Last Admin Trade Name Freq PRN Reason Stop Dose Admin Lactated Ringer's 1,000 mls @ 150 mls/hr 11/11/21 01:05 11/11/21 01:32 Lr IV 11/13/21 01:04 150 mls/hr .[id number] PRN Administration L&D Protocol Protocol NPO Date Last Intake of Fluids: 11/11/21 Time Last Intake of Fluids: 01:00 Date Last Intake of Solids: 11/10/21 Time Last Intake of Solids: 18:00 Past Medical History Medical History Anemia Fibrocystic breast changes of both breasts 2016 Exercise / Class Metabolic Activity II 4-5 Yardwork/Stairs/Walk up hill Past Anesthesia History No Hx of Anesthesia Complications and No Family Hx of Anesthesia Complications History of PONV No Hx of PONV and No Hx of Motion Sickness Social History Smoking Status: Never smoker Hx Alcohol Use: No Hx Substance Use: No substance use type: does not use Review of Systems no chest pain or sob Physical Exam Vital Signs Last Vital Signs Temp 36.5 C 11/11/21 02:00 Pulse 71 11/11/21 03:01 Resp 18 11/11/21 02:00 BP 118/68 11/11/21 02:40 Pulse Ox 100 11/11/21 03:01 ENMT Mouth: no TMJ abnormality Thyromental Distance: > or= 3.5 Finger Breadths Mallampati Class: II Neck normal visual inspection Respiratory normal respiratory effort Auscultation: lungs clear to auscultation bilaterally Cardiovascular Rate/Rhythm: regular rate and regular rhythm Musculoskeletal Spine: normal cervical ROM Neurologic moves all extremities Psychiatric Orientation: alert and oriented x 3 Testing Laboratory Results 11/11/21 01:20
[2021-11-11] MEDS: ePHEDrine sulfate 50 MG/ML AMP IV PRN ×4 (03:30→08:32)
[2021-11-11] MEDS ORDERED: bisacodyL 10 MG SUPP PR PRN (11:52)
[2021-11-11] MEDS ORDERED: BENZOCAINE 20% AER SPR 82.5 GM CAN EXT PRN (11:52)
[2021-11-11] MEDS ORDERED: DIPHTHERIA/TETANUS/PERTUSSIS 0.5 ML SYR/VIAL IM ONE (11:52)
[2021-11-11] MEDS ORDERED: HYDROCORTISONE ACETATE 25 MG SUPP PR PRN (11:52)
--- NOTE | 2021-11-11 11:53 | Delivery Summary ---
Vaginal Delivery Summary Date of Service November 11, 2021 Vaginal Delivery Summary Delivery Note live female BRANDON with delayed cord clamping and true knot in cord x1. Apgars 8/9 weight pending. Cord blood obtained followed by spontaneous delivery of intact placenta. No tears. EBL 200 ml. Final sponge and instrument count are correct. Mom and baby stable.
--- NOTE | 2021-11-11 12:18 | Anesthesia Procedure Note ---
Date of Service November 11, 2021 Anesthesia Post Epidural Note Vital Signs Vital Signs: Temp Pulse Resp BP Pulse Ox 98.2 F 77 20 114/58 L 86 L 11/11/21 11:42 11/11/21 12:15 11/11/21 11:42 11/11/21 12:15 11/11/21 11:44 Notes Mental Status: alert / awake / arousable and participated in evaluation Nausea / Vomiting: adequately controlled Pain: adequately controlled Airway Patency, RR, SpO2: stable & adequate BP & HR: stable & adequate Hydration State: stable & adequate Neuraxial Anesthesia: was administered and sensory block is resolving Anesthetic Complications: no major complications apparent and Pt Satisfied with anesthetic care Epidural: Removed without complications and With tip intact
[2021-11-11] MEDS: IBUPROFEN 600 MG TAB PO PRN ×2 (14:11→19:04)
[2021-11-11] MEDS: ACETAMINOPHEN 325 MG TAB PO PRN ×2 (17:21→23:35)
[2021-11-11] MEDS: DOCUSATE SODIUM 100 MG CAP PO SCH (21:34)
[2021-11-12] MEDS: IBUPROFEN 600 MG TAB PO PRN ×3 (01:06→19:33)
[2021-11-12] MEDS: ACETAMINOPHEN 325 MG TAB PO PRN (06:26)
[2021-11-12 06:39] LABS: Hematocrit (blood only) 31.5 % (34.1-44.9); Hemoglobin 10.4 g/dl (12.0-16.0); Mean Corpuscular Hemoglobin 30.5 pg (25.0-34.0); Mean Corpuscular Volume 92.4 fL (80.0-100.0); Mean Platelet Volume 10.9 fL (9.4-12.3); Platelet Count 139 K/uL (130-400); RDW Coefficient of Variation 13.4 % (11.5-14.5); RDW Standard Deviation 44.9 fL (36.4-46.3); Red Blood Count 3.41 M/uL (3.93-5.22); White Blood Count 13.57 K/ul (4.8-10.8)
[2021-11-12] MEDS ORDERED: FERROUS SULFATE 325 MG TAB PO SCH (08:00)
[2021-11-12] MEDS ORDERED: NON-FORMULARY MEDICATION (Prenatal Vit-Iron Fum-Folic Ac [Prenatal Vitamin] 27 mg iron- 0. PO SCH (09:00)
--- NOTE | 2021-11-12 09:33 | Obstetrical Progress Note ---
Date of Service November 12, 2021 Assessment & Plan (1) Normal course: PPD #1 Pt reports headache with left ocular pain. No RUQ pain Minimal relief with Tylenol BP is 99/63. Plt nml CMP ordered plan Rx for Tylenol#3 Caffeine. if no improvement will call anesthesia for spina; headache evaluation and tx Subjective Ambulation: ambulating normally Voiding: no voiding problems Passing Gas:: Yes Diet Tolerance:: regular diet Lochia:: Small Feeding Type:: breast feeding Review of Systems All systems reviewed & are unremarkable except as noted in HPI & below Physical Exam Constitutional WD/WN, vitals as above well developed and well nourished Eyes PERRL, conjunctivae normal, anicteric sclerae Neck trachea midline, no thyromegaly Respiratory normal respiratory effort, lungs clear to auscultation Auscultation: no crackles, no rales and no wheezes Cardiovascular RRR, no murmur, no edema Gastrointestinal (Abdomen) normal bowel sounds, soft, nontender, no hepatosplenomegaly Uterus is below umbilicus Musculoskeletal no cyanosis or clubbing, extremities motor strength 5/5 Skin no rashes, warm and dry Neurologic patellar DTR's 2+ bilat, sensation intact Psychiatric A+Ox3, euthymic affect Genitourinary normal external appearance Results & Data ([facility]) Vital Signs (Past 12 Hours) Vital Signs Temp Pulse Resp BP Pulse Ox O2 Del Method 11/12/21 05:02 36.4 C L 64 16 99/63 L 100 Room Air 11/11/21 23:00 36.5 C 70 18 96/60 L 100 Room Air
[2021-11-12] MEDS: DOCUSATE SODIUM 100 MG CAP PO SCH ×2 (10:02→19:39)
[2021-11-12] MEDS: PRENATAL VITAMIN 1 TAB PO SCH (10:02)
[2021-11-12] MEDS: ACETAMINOPHEN W/CODEINE #3 1 TAB PO PRN ×3 (10:02→19:32)
[2021-11-12] MEDS: FERROUS SULFATE 325 MG TAB PO SCH (10:02)
[2021-11-12] MEDS: TOCOPHERYL, DL-ALPHA 400 UNITS 180 MG CAP PO SCH (10:03)
[2021-11-12] MEDS: CHOLECALCIFEROL 1,000 UNITS 25 MCG TAB PO SCH (10:03)
[2021-11-12 10:20] LABS: Albumin Globulin Ratio 1.1 (0.9-2); Albumin Level 2.7 gm/dl (3.4-5.0); BUN Creatinine Ratio 11.1 (10-20); Bilirubin,Total 0.4 mg/dl (0.2-1.0); Calcium 8.3 mg/dl (8.5-10.1); Creatinine Clr Calc Pharmacy 133.6 ml/min; Est GFR (African American) 149.4 ml/min; Est GFR (Non-African American) 128.9 ml/min; Globulin 2.5 gm/dl (2.5-4.0); Potassium 3.8 mmol/L (3.5-5.1); Total Protein 5.2 gm/dl (6.0-8.3)
[2021-11-12] MEDS ORDERED: bisacodyL 5 MG TABEC PO SCH (20:00)
[2021-11-13] MEDS: ACETAMINOPHEN W/CODEINE #3 1 TAB PO PRN ×2 (06:19→10:56)
[2021-11-13] MEDS: IBUPROFEN 600 MG TAB PO PRN ×2 (06:20→10:56)
[2021-11-13 06:31] LABS: Hematocrit (blood only) 33.7 % (34.1-44.9); Hemoglobin 11.2 g/dl (12.0-16.0)
[2021-11-13] MEDS: TOCOPHERYL, DL-ALPHA 400 UNITS 180 MG CAP PO SCH (08:31)
[2021-11-13] MEDS: CHOLECALCIFEROL 1,000 UNITS 25 MCG TAB PO SCH (08:31)
[2021-11-13] MEDS: DOCUSATE SODIUM 100 MG CAP PO SCH (08:32)
[2021-11-13] MEDS: PRENATAL VITAMIN 1 TAB PO SCH (08:32)
[2021-11-13] MEDS: FERROUS SULFATE 325 MG TAB PO SCH (08:32)
--- NOTE | 2021-11-13 09:45 | Obstetrical Progress Note ---
Date of Service November 13, 2021 Assessment & Plan (1) Normal course: Pt doing well' Improved headache on Tylenol #3 wishes to be discharged home Subjective Ambulation: ambulating normally Voiding: no voiding problems Passing Gas:: Yes Diet Tolerance:: regular diet Lochia:: Small Feeding Type:: breast feeding Review of Systems All systems reviewed & are unremarkable except as noted in HPI & below Physical Exam Constitutional WD/WN, vitals as above well developed and well nourished Eyes PERRL, conjunctivae normal, anicteric sclerae Neck trachea midline, no thyromegaly Respiratory normal respiratory effort, lungs clear to auscultation Auscultation: no crackles, no rales and no wheezes Cardiovascular RRR, no murmur, no edema Gastrointestinal (Abdomen) normal bowel sounds, soft, nontender, no hepatosplenomegaly Uterus is below umbilicus Musculoskeletal no cyanosis or clubbing, extremities motor strength 5/5 Skin no rashes, warm and dry Neurologic patellar DTR's 2+ bilat, sensation intact Psychiatric A+Ox3, euthymic affect Genitourinary normal external appearance Results & Data ([facility]) Vital Signs (Past 12 Hours) Vital Signs Temp Pulse Resp BP O2 Del Method 11/13/21 07:15 36.7 C 61 18 106/69 Room Air 11/13/21 02:35 36.5 C 61 14 88/51 L Room Air
== END 2021-11-13 11:44 | disposition home or self-care (01) | DRG 807 ==
LOC: OPB 00:16 → 4S1 00:22 → 4E2 14:45